=== PATIENT | male | born 1970 | race Caucasian/White ===

== ENCOUNTER 2020-07-20 10:17 | Emergency (ER) | payer MEDICAID ==
[~2020-07-20] VITALS: Ht 157.4 cm; Wt 68.0 kg
[2020-07-20] MEDS ORDERED: DOXYCYCLINE100 M3 PO (11:02)
== END 2020-07-20 11:20 | disposition home or self-care (01) ==
LOC: ED 10:17
DX: L02.511 Cutaneous abscess of right hand (principal)